=== PATIENT | female | born 1965 | race Caucasian/White ===

== ENCOUNTER 2024-09-15 21:45 | Inpatient (IN) | payer BC, SELFPAY ==
[2024-09-15] VITALS (8 sets, daily range): BP systolic 123–166; BP diastolic 56–91; BMI 41.9; BMI 40.6
[2024-09-15 14:02] LABS: % Basophils 0.5 % (0-2); % Eosinophils 2.3 % (0-6); % Lymphocytes 19.9 % (20.5-51.1); % Monocytes 11.4 % (1.7-9.3); % Neutrophils 64.9 % (42.2-75.2); Absolute Basophils 0.1 10^3/uL (0-0.2); Absolute Eosinophils 0.2 10^3/uL (0-0.7); Absolute Immature Granulocytes 0.1 10^3/uL (0-0.05); Absolute Lymphocytes 1.9 10^3/uL (1.2-3.4); Absolute Monocytes 1.1 10^3/uL (0.1-0.6); Absolute Neutrophils 6.1 10^3/uL (1.4-6.5); Hematocrit 37.5 % (37.0-47.0); Hemoglobin 12.4 g/dL (12.0-16.0); Mean Corp Hgb Conc. 33.1 g/dL (33.0-37.0); Mean Corpuscular Hgb 28.1 pg (27.0-31.0); Mean Corpuscular Volume 84.8 fL (81.0-99.0); Mean Platelet Volume 9.7 fL (7.4-10.4); Nucleated Red Blood Cells % 0 %; Platelet Count 362 10^3/uL (130-400); Red Blood Cell Count 4.42 10^6/uL (4.20-5.40); Red Cell Dist. Width 13.3 % (11.5-14.5); White Blood Cell Count 9.4 10^3/uL (4.8-10.8)
[2024-09-15 14:03] LABS: Urine Albumin Trace (Neg - Trace); Urine Bilirubin Negative (Negative); Urine Character Clear (Clear); Urine Glucose Negative (Negative); Urine Ketone Negative (Negative); Urine Leukocyte Trace (Negative); Urine Nitrite Negative (Negative); Urine Occult Blood Negative (Negative); Urine Urobilinogen Negative (Neg - 1+)
[2024-09-15 14:05] LABS: Urine Color Yellow
[2024-09-15 14:16] LABS: Urine White Cell 0-2 /HPF (0-5)
[2024-09-15 14:17] LABS: ALT (SGPT) 257 U/L (0-35); AST (SGOT) 154 U/L (14-36); Albumin 4.4 g/dl (3.5-5.0); Alkaline Phosphatase 386 U/L (38-126); Blood Urea Nitrogen 18 mg/dl (7-17); Calcium 9.8 mg/dl (8.4-10.2); Carbon Dioxide 30 mmol/L (22-30); Chloride 97 mmol/L (98-107); Glucose 102 mg/dl (70-99); Potassium 3.8 mmol/L (3.5-5.1); Sodium 140 mmol/L (135-145); Total Bilirubin 0.7 mg/dl (0.2-1.3); Total Protein 7.4 g/dl (6.3-8.2); eGFR 57.52
--- NOTE | 2024-09-15 15:50 | ED.GENMED ---
History of Present Illness
General
Chief Complaint: Back Pain
Source: patient
Time Seen by Provider: 09/15/24 15:28
History of Present Illness
History of Present Illness:
59yoF with a history of hypertension and depression presenting for evaluation of multiple complaints. She initially started having subjective fevers and chills 3-4 days ago. She woke up 2 days ago with redness and pain to her R lower leg. She was
seen by her PCP that day for her symptoms. She was prescribed Keflex twice daily x 7 days for cellulitis. The erythema was marked with a skin marker and the redness has not spread since then. Patient has had 4 doses of Keflex thus far and patient
has not noticed any improvement. She denies any further fevers since starting the antibiotic. She started to have bilateral flank/lower back pain yesterday. She also had a 'cold sensation' throughout her body today which prompted her to come to
the ED. Patient denies any chest pain, shortness of breath, abdominal pain.
Phy Exam
General Physical Exam
General Presentation: well appearing and no apparent distress
General age: appears stated age
General Skin: warm and dry
General Habitus: normal
General Mental: alert
ENT Exam
ENT Exam: normocephalic
Cardiovascular Exam
Cardiovascular Exam: regular rate/rhythm and no murmur
Pulmonary Exam
Pulmonary Exam: lungs clear, no respiratory distress, no rales, no crackles, no rhonchi and no wheezing
Gastrointestinal Exam
Gastrointestinal Exam: non tender, soft, non distended and no cva tenderness
Bard Coma Scale
Eye Opening: Spontaneous
Verbal Response: Oriented
Motor Response: Obeys Commands
GCS Total Score: 15
Skin Exam
Skin Exam: erythema (Erythema and warmth noted to anterior R lower leg with tenderness. No crepitus, fluctuance, or pain out of proportion. )
Psychiatric Exam
Psychiatric Exam: normal mood/affect
Course
Orders/Labs/Results
Orders:
Orders
09/15/24 13:54
Complete Blood Count/With Diff Urgent
Comprehensive Metabolic Panel Urgent
Urine Culture Reflexed from UA [Urinalysis Reflex To Culture] Urgent
Date Specimen was Collected: 09/15/24
Time Specimen was Collected: 13:16
Urine Microscopic Reflex Cult Urgent
09/15/24 Dinner
Regular
At Your Request: Full Participation
Does patient need a safe tray?: No
09/15/24 15:43
Venous Doppler Lwr Ext Rt [US Periph Venous LOWER Ext RT] Urgent
Comment:
Reason For Exam: R calf pain, redness
09/15/24 15:44
CT Abd/pel Without Iv Or Oral Urgent
Comment:
Reason For Exam: Bilateral flank pain
09/15/24 15:54
Ketorolac [Toradol] 15 mg IV NOW STA
09/15/24 15:59
CeFAZolin 2 GRAM [Ancef] 2 grams in 10 ml IV NOW
09/15/24 20:59
Admit/Transfer Patient As Directed
Co-Sign Provider:
Level of Care: Inpatient admission
Assign to:: Medical/Surgical
Physician / Group: belén
Diagnosis: cellulitis
Reason for Hospitalization: cellulitis
Expected length of stay greater than two midnights?: Yes
ELOS- Estimated Length of Stay in days: 2
I certify the patient meets the requirements for IP care: Yes
Code Status As Directed
Resuscitation Status: Full Code
PRN Pain Medication Management As Directed
May give lesser potent ordered pain med per pt: Yes
preference::
Protocol:: Medication orders for pain may be administered in a
manner that supports deferring to patient preference
when the pt is:
- Requesting an ordered lesser potent pain medication.
Least to most potent pain medications are defined
as: acetaminophen < NSAID < tramadol < opioids
(morphine, oxycodone, hydromorphone).
- Requesting a lesser dose of the same medication IF
ORDERED.
- Requesting a less intrusive route of administration
if both routes are prescribed by the provider (PO <
IV).
09/15/24 22:09
Acetaminophen [Tylenol] 650 mg PO Q4HPRN PRN
09/15/24 22:33
CeFAZolin 2 GRAM [Ancef] 2 grams in 10 ml IV Q8H
Cetirizine HCl [Zyrtec] 10 mg PO DAILYPRN PRN
Ibuprofen [Motrin] 400 mg PO Q6HPRN PRN
Metoprolol Xl [Toprol Xl] 25 mg PO HS
09/15/24 22:33
Activity As Directed
Activity Level: As Tolerated
Vital Signs As Directed
Frequency: Per unit guidelines
US Abdomen Complete/Upper Routine
Comment:
Reason For Exam: transaminitis
DX Deep Vein Thrombosis Video Routine
09/16/24 06:00
Complete Blood Count/With Diff IN AM
Comprehensive Metabolic Panel IN AM
09/16/24 08:00
Bupropion(24Hr)Extended Releas [WELLBUTRIN XL (24 hour extended release)] 300 mg PO DAILY
Heparin 5,000 units SC Q12
lisinopril-hydrochlorothiazide 1 tablet PO DAILY
09/16/24 11:00
Multivitamin [Theragran] 1 tablet PO DAILY@1100
Abnormal Lab Results
09/15/24
13:54
Abs Immat Gran (auto) 0.1 H 10^3/uL
(0-0.05)
Absolute Monos (auto) 1.1 H 10^3/uL
(0.1-0.6)
Immature Gran % 1.0 H %
(0-0.5)
Lymphocytes % 19.9 L %
(20.5-51.1)
Monocytes % 11.4 H %
(1.7-9.3)
Chloride 97 L mmol/L
(98-107)
BUN 18 H mg/dl
(7-17)
Creatinine 1.1 H mg/dL
(0.6-1.0)
Glucose 102 H mg/dl
(70-99)
AST 154 H U/L
(14-36)
ALT 257 H U/L
(0-35)
Alkaline Phosphatase 386 H U/L
(38-126)
Leukocyte Esterase Rfl Trace A
(Negative)
09/15/24 13:54
09/15/24 13:54
Vital Signs
Initial and Last Documented VS:
Initial Vital Signs
Temp Pulse Resp BP Pulse Ox
98.1 F 85 18 166/82 95
09/15/24 12:51 09/15/24 12:51 09/15/24 12:51 09/15/24 12:51 09/15/24 12:51
Last Documented Vital Signs
Temp Pulse Resp BP Pulse Ox
98.3 F 79 18 149/70 99
09/15/24 22:40 09/15/24 22:40 09/15/24 22:40 09/15/24 22:40 09/15/24 22:40
MDM/Problems Addressed
Differential Diagnosis Includes:
59yoF here with R lower leg redness x 2 days. Associated with fevers/chills that began 3-4 days ago. Currently on Keflex BID for cellulitis with no improvement. Also c/o back pain. She is afebrile and hemodynamically stable. She is well appearing in
no distress. There is erythema and warmth to the RLE consistent with cellulitis. Differential diagnosis includes but is not limited to: cellulitis, erysipelas, sepsis, DVT, doubt NSTI
Initial ED plan: Labs obtained in triage. White count is normal. Mild transaminitis noted of unclear significance as patient has no abdominal pain. Will check venous duplex and CT abdomen without contrast. IV Ancef ordered.
*Critical Care Note
Total Time (30-74mins, 75-104mins- exclusive of procedures): Not Applicable
Update Note
Update Note:
Venous duplex is negative for DVT. Inguinal lymphadenopathy noted. CT abdomen is negative for acute findings. On reassessment, patient's erythema seems to be spreading posteriorly and is now present circumferentially. Given worsening cellulitis,
will admit for further management.
ED Attending Note
-
Portions of this chart may have been created with voice recognition software.� Occasional wrong word or��sound alike� substitutions may have occurred due to the inherent limitations of voice recognition software.
Discharge Plan
Departure
Patient Disposition: Admit
Date of Disposition: 09/15/24
Time of Disposition: 20:02
Presentation/result/management discussed w/ accepting MD/DO: Hospitalist
Discharge Problem:
Cellulitis of right lower extremity
Interventions
Interventions:
*Risk Screen - Suicide Last Done: 09/15/24 16:18
*General Assessment Last Done: 09/15/24 12:51
*Neglect/Abuse Screening Last Done: 09/15/24 16:18
ED- Fall Risk Assessment Last Done: 09/15/24 16:18
*ED COVID-19 Vaccine History Last Done: 09/15/24 16:18
*Nursing Disposition Last Done: 09/15/24 22:46
ED-Musculoskeletal Assessment Last Done: 09/15/24 16:18
Discharge Date and Time
Discharge Date/Time: 09/15/24 22:47
[2024-09-15] MEDS: ANCEF 10 IV (16:33)
--- NOTE | 2024-09-15 21:01 | HPS.HSE ---
Family Physician
-
Family Physician: Reyna Gonzalez
Chief Complaint
-
right leg infection
History of Present Illness
59-year-old female past medical history of hypertension, depression presenting for right lower extremity erythema, redness pain for the past 2 days. She woke up 3 days ago with redness and pain right lower leg. She was seen by her primary care
physician and was prescribed Keflex for 7 days for cellulitis. Erythema has not progressed since then however despite 4 doses of Keflex patient has not noticed any improvement. She started having bilateral lower back pain yesterday but denies any
pain today. She denies chest pain or shortness of breath or abdominal pain. She denies any nausea vomiting or diarrhea.
Patient drinks alcohol occasionally. Denies smoking.
Medical History
Past Medical History
Past Medical History: Reports Other (hypertension, depression )
Past Surgical History: Reports None
Social History
Tobacco: Non-smoker
Alcohol: Occasional
Drug: None
Family History
Family History: Not pertinent
Allergies / Home Medications
Allergies reflects when Allergies were last updated in Room.
Home Medications with original date entered in Room
Allergy/Medication List:
Allergies
Allergy/AdvReac Type Severity Reaction Status Date / Time
No Known Allergies Allergy Unverified 09/15/24 12:51
Home Medications
Hair, Skin And Nails 2 gummy PO DAILY 09/15/24
bupropion HCl 150 mg 24 hr tablet, extended release 300 mg PO DAILY 09/15/24
cephalexin 500 mg capsule 500 mg PO BID 09/15/24
cetirizine 10 mg tablet (Zyrtec) 10 mg PO DAILYPRN PRN congestion 09/15/24
lisinopril 20 mg-hydrochlorothiazide 12.5 mg tablet 1 tab PO DAILY 09/15/24
metoprolol succinate 25 mg tablet,extended release 24 hr 25 mg PO HS 09/15/24
therapeutic multivitamin 1 tab PO DAILY@1100 09/15/24
Review of Systems
-
History Source: Patient
A 12 point ROS was completed and negative except as noted: Yes
Constitutional: Reports No Symptoms
EENT: Reports No Symptoms
Respiratory: Reports No Symptoms
Cardiac: Reports No Symptoms
Abdomen/GI: Reports See HPI
: Reports No Symptoms
Musculoskeletal: Reports No Symptoms
Skin: Reports No Symptoms
Neurological: Reports No Symptoms
Endocrine: Reports No Symptoms
Hematologic/Lymphatic: Reports No Symptoms
Psych: Reports No Symptoms
Physical Exam
Vital Signs
Vital Signs
Temp Pulse Resp BP Pulse Ox
98.1 F 69 18 135/56 98
09/15/24 12:51 09/15/24 16:18 09/15/24 12:51 09/15/24 20:00 09/15/24 20:15
Physical Exam
General: Well Developed, Well Nourished and No Apparent Distress
HEENT: NormoCephalic, Moist mucous membranes and Atraumatic
Respiratory: Clear
Cardiac: S1/S2 and Regular Rhythm; No Murmur or Rub
GI: Soft, Non Tender, Non Distended and Normal Bowel Sounds; No Organomegaly
Rectal: Deferred by Provider
Musculoskeletal: No Clubbing, No Cyanosis and No Edema
Skin: No Rash
Neuro: Nonfocal/grossly intact
Laboratory Results
-
09/15/24 13:54
09/15/24 13:54
Laboratory Results
Total Bilirubin 0.7 mg/dl (0.2-1.3) 09/15/24 13:54
AST 154 U/L (14-36) H 09/15/24 13:54
ALT 257 U/L (0-35) H 09/15/24 13:54
Alkaline Phosphatase 386 U/L (38-126) H 09/15/24 13:54
Data Reviewed
-
Lab Data: Labs Reviewed by me
Old Records: Reviewed
Impression/Plan
-
IMPRESSION:
PLAN:
# Cellulitis of right lower extremity
-Appears patient was on Keflex only twice daily
-Venous ultrasound negative for DVT
-Cefazolin
-Tylenol, ibuprofen for pain
# Bilateral flank/lower back
-No back pain currently
-CT abdomen pelvis negative
# Transaminitis possibly secondary to hepatic steatosis
-Check liver ultrasound
Essential hypertension
-Continue lisinopril, hydrochlorothiazide
-Continue metoprolol
Depression
-Continue bupropion
Full code
DVT prophylaxis�heparin
Regular diet
--- NOTE | 2024-09-15 21:03 | HPS.HSE ---
Family Physician
-
Family Physician: Reyna Gonzalez
Chief Complaint
-
rigtht leg infection
History of Present Illness
59-year-old female past medical history of hypertension, depression presenting for right lower extremity erythema, redness pain for the past 2 days. She woke up 3 days ago with redness and pain right lower leg. She was seen by her primary care
physician and was prescribed Keflex for 7 days for cellulitis. Erythema has not progressed since then however despite 4 doses of Keflex patient has not noticed any improvement. She started having bilateral lower back pain yesterday but denies any
pain today. She denies chest pain or shortness of breath or abdominal pain. She denies any nausea vomiting or diarrhea.
Patient drinks alcohol occasionally. Denies smoking.
Medical History
Past Medical History
Past Medical History: Reports Other ( hypertension, depression)
Past Surgical History: Reports None
Social History
Tobacco: Non-smoker
Alcohol: Occasional
Drug: None
Family History
Family History: Not pertinent
Allergies / Home Medications
Allergies reflects when Allergies were last updated in [facility].
Home Medications with original date entered in [facility]
Allergy/Medication List:
Allergies
Allergy/AdvReac Type Severity Reaction Status Date / Time
No Known Allergies Allergy Unverified 09/15/24 12:51
Home Medications
Hair, Skin And Nails 2 gummy PO DAILY 09/15/24
bupropion HCl 150 mg 24 hr tablet, extended release 300 mg PO DAILY 09/15/24
cephalexin 500 mg capsule 500 mg PO BID 09/15/24
cetirizine 10 mg tablet (Zyrtec) 10 mg PO DAILYPRN PRN congestion 09/15/24
lisinopril 20 mg-hydrochlorothiazide 12.5 mg tablet 1 tab PO DAILY 09/15/24
metoprolol succinate 25 mg tablet,extended release 24 hr 25 mg PO HS 09/15/24
therapeutic multivitamin 1 tab PO DAILY@1100 09/15/24
Review of Systems
-
History Source: Patient
A 12 point ROS was completed and negative except as noted: Yes
Constitutional: Reports No Symptoms
EENT: Reports No Symptoms
Respiratory: Reports No Symptoms
Cardiac: Reports No Symptoms
Abdomen/GI: Reports No Symptoms
: Reports No Symptoms
Musculoskeletal: Reports No Symptoms
Skin: Reports See HPI
Neurological: Reports No Symptoms
Endocrine: Reports No Symptoms
Hematologic/Lymphatic: Reports No Symptoms
Psych: Reports No Symptoms
Physical Exam
Vital Signs
Vital Signs
Temp Pulse Resp BP Pulse Ox
98.1 F 69 18 135/56 98
09/15/24 12:51 09/15/24 16:18 09/15/24 12:51 09/15/24 20:00 09/15/24 20:15
Physical Exam
General: Well Developed, Well Nourished and No Apparent Distress
HEENT: NormoCephalic, Moist mucous membranes and Atraumatic
Respiratory: Clear
Cardiac: S1/S2 and Regular Rhythm; No Murmur or Rub
GI: Soft, Non Tender, Non Distended and Normal Bowel Sounds; No Organomegaly
Rectal: Deferred by Provider
Musculoskeletal: No Clubbing, No Cyanosis and No Edema
Skin: No Rash
Neuro: Nonfocal/grossly intact
Laboratory Results
-
09/15/24 13:54
09/15/24 13:54
Laboratory Results
Total Bilirubin 0.7 mg/dl (0.2-1.3) 09/15/24 13:54
AST 154 U/L (14-36) H 09/15/24 13:54
ALT 257 U/L (0-35) H 09/15/24 13:54
Alkaline Phosphatase 386 U/L (38-126) H 09/15/24 13:54
Data Reviewed
-
Lab Data: Labs Reviewed by me
Old Records: Reviewed
Impression/Plan
-
IMPRESSION:
PLAN:
# Cellulitis of right lower extremity
-Appears patient was on Keflex only twice daily
-Venous ultrasound negative for DVT
-Cefazolin
-Tylenol, ibuprofen for pain
# Bilateral flank/lower back
-No back pain currently
-CT abdomen pelvis negative
# Transaminitis possibly secondary to hepatic steatosis
-Check liver ultrasound
Essential hypertension
-Continue lisinopril, hydrochlorothiazide
-Continue metoprolol
Depression
-Continue bupropion
Full code
DVT prophylaxis�heparin
Regular diet
[2024-09-15] MEDS: TYLENOL 650 MG PO (22:21)
--- NOTE | 2024-09-15 23:00 | PTCARENOTE ---
Received pt from ED Via stretcher. Patient is able to ambulate on standing scale with minimal assistance. AAo*4, VSS. patient denies any chest pain or shortness of breath. Patient c/o / RLE 'heavy discomfort'. Patient refuses PRN pain medication.
RLE bright red with no open areas and warm/hot to touch. Site is outlined to assess any changes. Patient oriented to room, updated to plan of care and use of call rios for safety. Bed in low position, call rios within reach. All orders reviewed
and acknowledged.
[2024-09-15] MEDS: TOPROL XL 25 MG PO (23:33)
[2024-09-16] MEDS: ANCEF 10 IV ×3 (00:29→17:14)
[2024-09-16] MEDS: MOTRIN 400 MG PO ×2 (06:32→21:10)
[2024-09-16 07:00] VITALS: BP 126/63
[2024-09-16 07:08] LABS: % Basophils 0.5 % (0-2); % Eosinophils 3.4 % (0-6); % Immature Granulocytes 1.5 % (0-0.5); % Lymphocytes 18.3 % (20.5-51.1); % Monocytes 10.7 % (1.7-9.3); % Neutrophils 65.6 % (42.2-75.2); Absolute Eosinophils 0.3 10^3/uL (0-0.7); Absolute Immature Granulocytes 0.1 10^3/uL (0-0.05); Absolute Lymphocytes 1.6 10^3/uL (1.2-3.4); Absolute Monocytes 0.9 10^3/uL (0.1-0.6); Absolute Neutrophils 5.6 10^3/uL (1.4-6.5); Hemoglobin 11.8 g/dL (12.0-16.0); Mean Corp Hgb Conc. 33.7 g/dL (33.0-37.0); Mean Corpuscular Hgb 29.1 pg (27.0-31.0); Mean Corpuscular Volume 86.4 fL (81.0-99.0); Mean Platelet Volume 10.1 fL (7.4-10.4); Nucleated Red Blood Cells % 0 %; Platelet Count 332 10^3/uL (130-400); Red Blood Cell Count 4.05 10^6/uL (4.20-5.40); Red Cell Dist. Width 13.2 % (11.5-14.5); White Blood Cell Count 8.6 10^3/uL (4.8-10.8)
[2024-09-16 07:34] LABS: ALT (SGPT) 176 U/L (0-35); AST (SGOT) 81 U/L (14-36); Albumin 3.9 g/dl (3.5-5.0); Alkaline Phosphatase 351 U/L (38-126); Blood Urea Nitrogen 15 mg/dl (7-17); Carbon Dioxide 27 mmol/L (22-30); Chloride 98 mmol/L (98-107); Estimated Creatinine Clearance 82 ml/min; Glucose 103 mg/dl (70-99); Sodium 139 mmol/L (135-145); Total Bilirubin 0.8 mg/dl (0.2-1.3); Total Protein 6.7 g/dl (6.3-8.2); eGFR > 60.00
[2024-09-16] MEDS: HEPARIN 5000 UNITS SC ×2 (10:19→21:10)
[2024-09-16] MEDS: ZESTRIL 20 MG PO (10:19)
[2024-09-16] MEDS: WELLBUTRIN XL (24 hour extended release) 300 MG PO (10:20)
[2024-09-16] MEDS: ORETIC 12.5 MG PO (10:20)
[2024-09-16] MEDS: THERAGRAN 1 TABLET PO (10:21)
--- NOTE | 2024-09-16 11:46 | W.PN.HOSP.TC ---
Addendum entered and electronically signed by David Whitehead MD 09/16/24 11:57:
K-pad to leg
Original Note:
Today's Communication/Plan
-
continue IV Ancef
Assessment / Plan
Assessment / Plan
# Cellulitis of right lower extremity
-Appears patient was on Keflex only twice daily
-Venous ultrasound negative for DVT
-Cefazolin 2 gms IV q8h
pt notes considerable improvement since starting IV abx. Due to failure of oral abx, would like to continue IV for at least another 24 hrs before would consider transiton to oral
-Tylenol, ibuprofen for pain
# Bilateral flank/lower back
-No back pain currently
-CT abdomen pelvis negative
# Transaminitis possibly secondary to hepatic steatosis
-Check liver ultrasound. Completed, results pending, recheck LFT's, a1c
AST 154-->81
ALT 257-->176
Alk Phos 386-->351
Essential hypertension
-Continue lisinopril, hydrochlorothiazide
-Continue metoprolol
Depression
-Continue bupropion
Full code
DVT prophylaxis�heparin
Regular diet
Anticipated Discharge: 24 - 48 hours
Subjective/Interval History
-
Date of Service: September 16, 2024
Awake, alert, conversant
Objective Data
-
Labs:
Laboratory Results
09/16/24
06:10
WBC 8.6
Hgb 11.8 L
Hct 35.0 L
Plt Count 332
Sodium 139
Potassium 4.0
Chloride 98
Carbon Dioxide 27
BUN 15
Creatinine 1.0
Glucose 103 H
Calcium 9.0
Total Bilirubin 0.8
AST 81 H
ALT 176 H
Alkaline Phosphatase 351 H
Vital Signs:
Vital Signs
Temp Pulse Resp BP Pulse Ox
97.7 F 73 18 126/63 99
09/16/24 07:00 09/16/24 07:00 09/16/24 07:00 09/16/24 07:00 09/16/24 07:00
Review of Systems
-
History Source: Patient and Family ( at bedside)
Constitutional: Denies Fever
EENT: Reports No Symptoms Reported
Respiratory: Reports No Symptoms
Cardiac: Reports No Symptoms
Abdomen/GI: Reports No Symptoms; Denies Abdominal Pain
Musculoskeletal: Reports No Symptoms
Skin: Reports Rash (cellulitis, Rt LE)
Physical Exam
-
General: Well Developed, Well Nourished and No Apparent Distress
HEENT: Normocephalic, Atraumatic and Moist Mucous Membranes
Respiratory: Clear to Auscultation; Negative Wheezes, Rales or Rhonchi
Cardiac: Regular Rhythm and S1/S2
GI: Soft, Nontender and Nondistended
Musculoskeletal: No Clubbing, No Cyanosis and No Edema
Skin: Warm, Dry and Rash (Rt LE below knee with extensive cellulitic changes)
Neuro: Awake, Alert and Oriented
[2024-09-16 15:00] VITALS: BP 107/56
[2024-09-16] MEDS: TOPROL XL 25 MG PO (21:11)
[2024-09-16] MEDS: MELATONIN 5 MG PO (22:33)
[2024-09-16 23:19] VITALS: BP 100/44
[2024-09-17] MEDS: ANCEF 10 IV ×3 (01:47→17:32)
[2024-09-17 08:00] VITALS: BP 118/78
[2024-09-17 08:09] LABS: ALT (SGPT) 114 U/L (0-35); AST (SGOT) 54 U/L (14-36); Albumin 3.8 g/dl (3.5-5.0); Alkaline Phosphatase 376 U/L (38-126); Blood Urea Nitrogen 17 mg/dl (7-17); Carbon Dioxide 29 mmol/L (22-30); Chloride 99 mmol/L (98-107); Estimated Creatinine Clearance 75 ml/min; Glucose 113 mg/dl (70-99); Potassium 4.5 mmol/L (3.5-5.1); Sodium 141 mmol/L (135-145); Total Bilirubin 0.6 mg/dl (0.2-1.3); Total Protein 6.7 g/dl (6.3-8.2); eGFR 57.52
[2024-09-17] MEDS: ORETIC 12.5 MG PO (08:09)
[2024-09-17] MEDS: WELLBUTRIN XL (24 hour extended release) 300 MG PO (08:09)
[2024-09-17] MEDS: ZESTRIL 20 MG PO (08:09)
[2024-09-17] MEDS: HEPARIN 5000 UNITS SC ×2 (08:10→21:22)
[2024-09-17 10:06] LABS: Glycohemoglobin (HgbA1c) 6.1 % (4.0-5.6)
[2024-09-17] MEDS: THERAGRAN 1 TABLET PO (11:34)
--- NOTE | 2024-09-17 15:55 | W.PN.HOSP.TC ---
Today's Communication/Plan
-
cont iv abx
Assessment / Plan
Assessment / Plan
# Cellulitis of right lower extremity
-Appears patient was on Keflex only twice daily
-Venous ultrasound negative for DVT
-Cefazolin 2 gms IV q8h
pt notes considerable improvement since starting IV abx. continue IV for at least another 24 hrs before would consider transiton to oral
-Tylenol, ibuprofen for pain
# Bilateral flank/lower back
-No back pain currently
-CT abdomen pelvis negative
# Transaminitis possibly secondary to hepatic steatosis
-diffuse liver disease on US
-f/u outpatient
-no ruq tenderness
Essential hypertension
-Continue lisinopril, hydrochlorothiazide
-Continue metoprolol
Depression
-Continue bupropion
Full code
DVT prophylaxis�heparin
Regular diet
Anticipated Discharge: Within 24 hours
Subjective/Interval History
-
Date of Service: September 17, 2024
erythema appears to be the same from yest although pain has improved
Objective Data
-
Labs:
Laboratory Results
09/17/24
06:45
Sodium 141
Potassium 4.5
Chloride 99
Carbon Dioxide 29
BUN 17
Creatinine 1.1 H
Glucose 113 H
Calcium 9.0
Total Bilirubin 0.6
AST 54 H
ALT 114 H
Alkaline Phosphatase 376 H
Vital Signs:
Vital Signs
Temp Pulse Resp BP Pulse Ox
98 F 68 18 118/78 99
09/17/24 08:00 09/17/24 08:09 09/17/24 08:00 09/17/24 08:09 09/17/24 08:00
I&O
09/16/24 09/17/24 09/18/24
06:59 06:59 06:59
Intake Total 960 / 960
Balance 960 / 960
Review of Systems
-
History Source: Patient
All other systems: Not reviewed unless documented
Physical Exam
-
General: Well Developed, Well Nourished and No Apparent Distress
HEENT: Normocephalic, Atraumatic and Moist Mucous Membranes
Respiratory: Clear to Auscultation; Negative Wheezes, Rales or Rhonchi
Cardiac: Regular Rhythm and S1/S2
GI: Soft, Nontender and Nondistended
Musculoskeletal: No Clubbing, No Cyanosis and No Edema
Skin: Warm, Dry and Rash (Rt LE below knee with extensive cellulitic changes)
Neuro: Awake, Alert and Oriented
Data Reviewed
-
Ultrasound: Report Reviewed by me
Labs: Labs Reviewed by me
--- NOTE | 2024-09-17 16:06 | CM ---
Alert awake oriented patient who lives with her Otto and family in a 2 story home with 1 steps to enter and 13 steps to bed/bathroom. She is independent in driving and activates of daily living.She does not have adaptive devices .Offered Vn
she declined need.
No VN in past . No SNF hx
Pharmacy [facility]
PCP Dr Gonzalez
PLAN Home with no need
[2024-09-17 16:54] VITALS: BP 99/52
[2024-09-17] MEDS: MOTRIN 400 MG PO (18:35)
[2024-09-17] MEDS: TOPROL XL 25 MG PO (21:21)
[2024-09-17] MEDS: MELATONIN 5 MG PO (21:22)
[2024-09-17 23:11] VITALS: BP 92/50
[2024-09-18] MEDS: ANCEF 10 IV ×2 (01:58→10:15)
[2024-09-18 07:09] VITALS: BP 122/62
[2024-09-18] MEDS: ZESTRIL 20 MG PO (08:17)
[2024-09-18] MEDS: ORETIC 12.5 MG PO (08:17)
[2024-09-18] MEDS: HEPARIN 5000 UNITS SC (08:17)
[2024-09-18] MEDS: WELLBUTRIN XL (24 hour extended release) 300 MG PO (08:17)
[2024-09-18] MEDS: THERAGRAN 1 TABLET PO (10:15)
--- NOTE | 2024-09-18 12:14 | W.PN.HOSP.TC ---
Addendum entered and electronically signed by Luis Gao MD 09/19/24 18:14:
BMI > or = to 40
Addendum entered and electronically signed by Luis Gao MD 09/19/24 17:55:
[id number]
Original Note:
Today's Communication/Plan
-
transition to cephalexin 500 mg 4 times daily to complete 10 day course
F/u CBC, CMP outpatient
F/u PCP outpatient
Assessment / Plan
Assessment / Plan
General: Well Developed, Well Nourished and No Apparent Distress
HEENT: Normocephalic, Atraumatic and Moist Mucous Membranes
Respiratory: Clear to Auscultation; Negative Wheezes, Rales or Rhonchi
Cardiac: Regular Rhythm and S1/S2
GI: Soft, Nontender and Nondistended
Musculoskeletal: No Clubbing, No Cyanosis and No Edema
Skin: Warm, Dry and Rash (Rt LE below knee with extensive cellulitic changes - greatly improved from yesterday), tenderness improved as well
Neuro: Awake, Alert and Oriented
# Cellulitis of right lower extremity, improved
-Right inguinal lymphadenopathy, most likely attributed to cellulitis�follow-up outpatient
-Appears patient was on Keflex only twice daily
-Venous ultrasound negative for DVT
-Cefazolin 2 gms IV q8h -transition to cephalexin 500 mg 4 times daily to complete 10 day course
-Tylenol, ibuprofen for pain
# Bilateral flank/lower back
-No back pain currently
-CT abdomen pelvis negative
# Transaminitis possibly secondary to hepatic steatosis
-diffuse liver disease on US
-f/u outpatient LFTs
-no ruq tenderness
Essential hypertension
-Continue lisinopril, hydrochlorothiazide
-Continue metoprolol
Depression
-Continue bupropion
Full code
DVT prophylaxis�heparin
Regular diet
More than 30 minutes spent in discharge including
Final examination of the patient
Summarizing hospital stay
Instructions for continuing care to all relevant caregivers
Preparation of discharge records, prescriptions, and referral forms
Total time spent (35 in minutes):
Anticipated Discharge: Today
Subjective/Interval History
-
Date of Service: September 18, 2024
Erythema and tenderness improved
Objective Data
-
Vital Signs:
Vital Signs
Temp Pulse Resp BP Pulse Ox
98.0 F 64 16 122/62 97
09/18/24 07:09 09/18/24 07:09 09/18/24 07:09 09/18/24 07:09 09/18/24 08:10
I&O
09/17/24 09/18/24 09/19/24
06:59 06:59 06:59
Intake Total 960 / 960 1859 / 1859
Balance 960 / 960 1859 / 1859
Review of Systems
-
History Source: Patient
All other systems: Not reviewed unless documented
Data Reviewed
-
CT Scan: Report Reviewed by me
Ultrasound: Report Reviewed by me
Labs: Labs Reviewed by me
--- NOTE | 2024-09-18 12:20 | W.DS.TRANS ---
DC Summary - Se[employer]er
-
Discharge Instructions:
Discharge Diagnosis/Procedures Cellulitis of right lower extremity
Diet Low Cholesterol,Low Fat
Activity As tolerated
Blood Work cbc and cmp in 3-5 days with pcp
Others Tests There is right inguinal lymphadenopathy with a 3
.3 cm right inguinal lymph node: can f/u
outpatient; suspect 2/2 to cellulitis
Mild diffuse liver disease(suspect fatty liver),
mild intrahepatic and extrahepatic biliary
dilation, mild splenomegaly: follow-up
outpatient
Instructions:
Stand-Alone Forms:
Changes to Home Medications: Yes
Discharge Medications:
DC Medications w/original date entered in [facility]
Hair, Skin And Nails 2 gummy PO DAILY Supplement 09/15/24
bupropion HCl 150 mg 24 hr tablet, extended release 300 mg PO DAILY Mental Health/Anxiety 09/15/24
cetirizine 10 mg tablet (Zyrtec) 10 mg PO DAILYPRN PRN congestion 09/15/24
lisinopril 20 mg-hydrochlorothiazide 12.5 mg tablet 1 tab PO DAILY Blood Pressure 09/15/24
metoprolol succinate 25 mg tablet,extended release 24 hr 25 mg PO HS Blood Pressure 09/15/24
therapeutic multivitamin 1 tab PO DAILY@1100 Supplement 09/15/24
cephalexin 500 mg capsule 500 mg PO QID 8 days #32 caps 09/18/24
Home Medication Changes
cephalexin 500 mg capsule 500 mg PO QID 8 days #32 caps 09/18/24
Pending Results: No
--- NOTE | 2024-09-18 12:40 | CM ---
CM Reviewed chart; discharge order placed for today. Pt remains (I) amb and adls
Plan: Discharge to home with identified needs.
Pharmacy: [facility]
PCP: Dr Gonzalez
--- NOTE | 2024-09-19 11:20 | PN.CDI ---
CDI
- -
CDI:
Physician Documentation Request
Admit Date: 09/15/24 21:45
Dear Doctor Murray,
Please review the following and provide your response in the progress notes.
Clinical Indicators:
Height: 5 ft 8 inches
Weight: 275
BMI: 41.9
Other Clinical Notes:RD notes 09/17 'chart reviewed per BMI > 40. morbid obesity'
If possible, please provide an associated diagnosis related to the abnormal BMI, such as:
BMI > or = to 40
Overweight
Obesity:
Due to excess calories
Drug induced
Due to other cause
Severe or morbid obesity:
With alveolar hypoventilation (Obesity hypoventilation syndrome)
Without alveolar hypoventilation
- BMI is not significant
- Other
Use of terms such as suspected, likely, concern for, or probable (associated with a specific diagnosis that is being evaluated, monitored, or treated as if it exists) are acceptable and can be coded in the inpatient setting, when documented at the
time of discharge.
Thank you,
Darby Millan RN, BSN
CDI Specialist
tiger text
Please use your independent medical judgment in providing your response.
== END 2024-09-18 13:11 | disposition home or self-care (01) | DRG 603 ==
LOC: 4 EAST ACU 21:45
PROVIDERS: Emergency Medicine; Internal Medicine; ADMITTING PHYSICIAN Hospitalist; ATTENDING PHYSICIAN Internal Medicine; EMERGENCY PHYSICIAN Emergency Medicine; FAMILY PHYSICIAN Family Medicine
DX: L03.115 Cellulitis of right lower limb (principal); Z68.41 Body mass index [BMI] 40.0-44.9, adult; I10 Essential (primary) hypertension; F32.A Depression, unspecified; M54.50 Low back pain, unspecified; K76.0 Fatty (change of) liver, not elsewhere classified; Z79.899 Other long term (current) drug therapy
CPT/HCPCS: 74176; 76700; 80053; 81003; 81015; 83036; 85025; 93971; 96374; 96375; 99285